=== PATIENT | male | born 1995 | race Caucasian/White ===

== ENCOUNTER 2020-10-18 17:42 | Emergency (ER) | payer BC, OTHER ==
[~2020-10-18] VITALS: Ht 182.9 cm; Wt 113.6 kg
[2020-10-18] MEDS ORDERED: GABA-282 PO (19:59)
[2020-10-18] MEDS ORDERED: VALA1TAB5 PO (19:59)
[2020-10-18] MEDS ORDERED: GABAPENTIN 300 MG CAP PO ONE (20:00)
[2020-10-18] MEDS ORDERED: valACYclovir HCL 500 MG TAB PO ONE (20:00)
[2020-10-18 20:31] VITALS: BP 128/88
== END 2020-10-18 20:32 | disposition home or self-care (01) ==
LOC: M ED 17:42
DX: B02.9 Zoster without complications (principal)

== ENCOUNTER 2024-11-06 12:25 | Emergency (ER) | payer BC, OTHER ==
[~2024-11-06] VITALS: Ht 182.9 cm; Wt 121.4 kg
[~2024-11-06 12:25] MED LIST: GABA-1172 PO; VALA1TAB5 PO
[2024-11-06 15:22] VITALS: BP 134/88; TEMP 98.5; O2SAT 98
== END 2024-11-06 15:24 | disposition home or self-care (01) ==
LOC: M ED 12:25
DX: S50.11XA Contusion of right forearm, initial encounter (principal); S86.111A Strain of other muscle(s) and tendon(s) of posterior muscle group at lower leg level, right leg, initial encounter; Y92.830 Public park as the place of occurrence of the external cause; Y93.9 Activity, unspecified; Y99.9 Unspecified external cause status; W01.10XA Fall on same level from slipping, tripping and stumbling with subsequent striking against unspecified object, initial encounter